=== PATIENT | male | born 1990 | race African-American/Black ===

== ENCOUNTER 2020-01-13 09:41 | Inpatient (IN) | payer OTHER ==
[2020-01-13 11:08] VITALS: BMI 23.1
[2020-01-13] MEDS ORDERED: MAGNESIUM CITRATE 300 ML BOTTLE PO PRN (11:26)
[2020-01-13] MEDS ORDERED: ACETAMINOPHEN 325 MG TABLET (FP) PO PRN ×2 (11:26)
[2020-01-13] MEDS ORDERED: MAG HYDROX/AL HYDROX/SIMETH 30 ML UNIT-DOSE CUP PO PRN (11:26)
[2020-01-13] MEDS ORDERED: chlordiazePOXIDE HCL 25 MG CAPSULE PO PRN (11:26)
[2020-01-13] MEDS ORDERED: MENTHOL/PHENOL 1 EACH UD MM PRN (11:26)
[2020-01-13] MEDS ORDERED: IBUPROFEN 400 MG TABLET (FP) PO PRN (11:26)
[2020-01-13] MEDS ORDERED: MAGNESIUM HYDROX 2400MG/30ML ORAL SUSPENSION 30 ML CUP PO PRN (11:26)
[2020-01-13] MEDS ORDERED: ONDANSETRON *ODT* 4 MG TABLET SL PRN (11:26)
[2020-01-13 14:27] LABS: HEMATOCRIT 44.8 % (35.4-49); HEMOGLOBIN 14.9 GM/dL (11.7-16.9); MCH 32.5 pg (25.7-33.7); MCHC 33.3 g/dl (32.0-35.9); MEAN CELL VOLUME 97.7 fl (80-96); MEAN PLT VOLUME 8.9 fl (7.5-11.1); PLATELET COUNT 242 K/MM3 (134-434); RBC 4.58 M/mm3 (4.00-5.60); RDW 13.2 % (11.9-15.9); WHITE BLOOD COUNT 6.8 K/mm3 (4.0-10.0)
[2020-01-13 14:34] LABS: ALBUMIN 4.4 g/dl (3.4-5.0); CALCIUM 9.4 mg/dL (8.5-10.1)
[2020-01-13 14:38] LABS: CREATININE 0.7 mg/dL (0.55-1.3)
[2020-01-13 14:39] LABS: BILIRUBIN,TOTAL 0.6 mg/dL (0.2-1); TOT PROT 7.7 g/dl (6.4-8.2)
[2020-01-13] MEDS: hydrOXYzine PAMOATE 25 MG CAPSULE (FP) PO SCH ×3 (14:50→22:15)
[2020-01-13] MEDS: METHOCARBAMOL 500 MG TABLET PO PRN ×2 (14:52→22:16)
[2020-01-13] MEDS: chlordiazePOXIDE HCL 25 MG CAPSULE PO SCH ×2 (17:22→22:16)
[2020-01-13] MEDS: THIAMINE HCL 100 MG TABLET (FP) PO SCH (22:16)
[2020-01-13] MEDS: MELATONIN 5 MG TABLETS PO SCH (22:16)
[2020-01-13] MEDS: SUVOREXANT 10 MG TABLET PO PRN (22:18)
[2020-01-14] MEDS: hydrOXYzine PAMOATE 25 MG CAPSULE (FP) PO SCH ×5 (05:20→22:20)
[2020-01-14] MEDS: chlordiazePOXIDE HCL 25 MG CAPSULE PO SCH ×4 (05:20→22:20)
[2020-01-14] MEDS: METHOCARBAMOL 500 MG TABLET PO PRN ×3 (05:21→17:52)
[2020-01-14] MEDS: PRENATAL VITAMINS W/ FOLIC ACID TABLET (FP) PO SCH (10:51)
[2020-01-14] MEDS: THIAMINE HCL 100 MG TABLET (FP) PO SCH (22:20)
[2020-01-14] MEDS: SUVOREXANT 10 MG TABLET PO PRN (22:20)
[2020-01-14] MEDS: MELATONIN 5 MG TABLETS PO SCH (22:20)
[2020-01-15] MEDS: hydrOXYzine PAMOATE 25 MG CAPSULE (FP) PO SCH ×5 (06:29→22:12)
[2020-01-15] MEDS: chlordiazePOXIDE HCL 25 MG CAPSULE PO SCH ×4 (06:29→22:11)
[2020-01-15] MEDS: PRENATAL VITAMINS W/ FOLIC ACID TABLET (FP) PO SCH (10:50)
[2020-01-15] MEDS: METHOCARBAMOL 500 MG TABLET PO PRN ×2 (10:51→17:12)
[2020-01-15] MEDS: cloNIDine HCL 0.1 MG TABLET PO PRN ×2 (13:43→22:11)
[2020-01-15] MEDS: BISMUTH SUBSALICYLATE 262 MG/15 ML BTL PO PRN (19:26)
[2020-01-15] MEDS: THIAMINE HCL 100 MG TABLET (FP) PO SCH (22:11)
[2020-01-15] MEDS: SUVOREXANT 10 MG TABLET PO PRN (22:11)
[2020-01-15] MEDS: MELATONIN 5 MG TABLETS PO SCH (22:12)
[2020-01-16] MEDS ORDERED: chlordiazePOXIDE HCL 10 MG CAPSULE PO PRN
[2020-01-16] MEDS: chlordiazePOXIDE HCL 10 MG CAPSULE PO SCH ×4 (06:14→22:06)
[2020-01-16] MEDS: hydrOXYzine PAMOATE 25 MG CAPSULE (FP) PO SCH ×3 (06:15→14:25)
[2020-01-16] MEDS: METHOCARBAMOL 500 MG TABLET PO PRN ×2 (06:17→22:10)
[2020-01-16] MEDS: PRENATAL VITAMINS W/ FOLIC ACID TABLET (FP) PO SCH (10:29)
[2020-01-16 10:43] LABS: SGOT/AST 67 U/L (15-37); SGPT/ALT 79 U/L (13-61)
[2020-01-16] MEDS: hydrOXYzine PAMOATE 25 MG CAPSULE (FP) PO PRN ×2 (17:19→22:10)
[2020-01-16] MEDS: cloNIDine HCL 0.1 MG TABLET PO PRN (17:20)
[2020-01-16] MEDS: BISMUTH SUBSALICYLATE 262 MG/15 ML BTL PO PRN (20:09)
[2020-01-16] MEDS: THIAMINE HCL 100 MG TABLET (FP) PO SCH (22:06)
[2020-01-16] MEDS: MELATONIN 5 MG TABLETS PO SCH (22:07)
[2020-01-17] MEDS: chlordiazePOXIDE HCL 10 MG CAPSULE PO SCH ×2 (06:16→17:28)
[2020-01-17] MEDS: METHOCARBAMOL 500 MG TABLET PO PRN ×3 (06:19→22:09)
[2020-01-17] MEDS: cloNIDine HCL 0.1 MG TABLET PO PRN ×3 (06:22→22:06)
[2020-01-17] MEDS: PRENATAL VITAMINS W/ FOLIC ACID TABLET (FP) PO SCH (10:18)
[2020-01-17] MEDS: hydrOXYzine PAMOATE 25 MG CAPSULE (FP) PO PRN ×3 (10:20→22:06)
[2020-01-17] MEDS: THIAMINE HCL 100 MG TABLET (FP) PO SCH (22:05)
[2020-01-17] MEDS: MELATONIN 5 MG TABLETS PO SCH (22:05)
[2020-01-18] MEDS ORDERED: chlordiazePOXIDE HCL 10 MG CAPSULE PO ONE (05:00)
[2020-01-18] MEDS: hydrOXYzine PAMOATE 25 MG CAPSULE (FP) PO PRN (05:19)
[2020-01-18] MEDS: METHOCARBAMOL 500 MG TABLET PO PRN (05:19)
[2020-01-18 09:34] VITALS: BP 133/81; PULSE 87; TEMP 97.3
== END 2020-01-18 09:20 | disposition home or self-care (01) | DRG 775 ==
LOC: YASAS 09:41 → Y6N 11:33
PROVIDERS: ADMIT Allergy & Immunology; ATTEND Allergy & Immunology
PROC: HZ2ZZZZ Detoxification Services for Substance Abuse Treatment (ICD-10-PCS; principal; 2020-01-13)
DX: F10.230 Alcohol dependence with withdrawal, uncomplicated (principal); F17.210 Nicotine dependence, cigarettes, uncomplicated; F10.24 Alcohol dependence with alcohol-induced mood disorder; F10.282 Alcohol dependence with alcohol-induced sleep disorder; F41.9 Anxiety disorder, unspecified; M54.42 Lumbago with sciatica, left side; G89.29 Other chronic pain; R74.01 Elevation of levels of liver transaminase levels; R03.0 Elevated blood-pressure reading, without diagnosis of hypertension; Z56.0 Unemployment, unspecified; Z59.0 Homelessness
CPT/HCPCS: 36415; 80053; 84450; 84460; 85027; 86780; 93005; 93010; C9803; J0735; Q0162; U0003